=== PATIENT | female | born 2000 | race Caucasian/White ===

== ENCOUNTER 2020-01-31 22:32 | Emergency (ER) | payer MEDICAID ==
[~2020-01-31] VITALS: Ht 167.6 cm; Wt 62.3 kg
[2020-01-31] MEDS ORDERED: PROCHLORPERAZINE 5 MG/ML, 2ML ONE (23:20)
[2020-01-31] MEDS ORDERED: KETOROLAC 30 MG/1 ML ONE (23:20)
[2020-01-31] MEDS ORDERED: ACETAMINOPHEN 500 MG TABLET ONE (23:21)
[2020-01-31 23:26] LABS: MICROSCOPIC NOT IND
[2020-01-31] MEDS ORDERED: DIPHENHYDRAMINE 25 MG CAPSULE PO ONE (23:30)
[2020-01-31] MEDS ORDERED: KETOROLAC 30 MG/1 ML IM ONE (23:30)
[2020-01-31] MEDS ORDERED: ACETAMINOPHEN 500 MG TABLET PO ONE (23:30)
[2020-01-31] MEDS ORDERED: PROCHLORPERAZINE 5 MG/ML, 2ML IM ONE (23:30)
--- NOTE | 2020-01-31 23:30 | NUR ---
PT RESTING IN BED, PT PROVIDED WARM BLANKET AFTER PT AMBULATED TO BATHROOM WITHOUT DIFFICULTY. PT ON MONITOR AND MANUFACTURING PROJECT ENGINEER WILL CONTINUE TO MONITOR PT VITALS
[2020-01-31 23:39] LABS: BASOPHILS # (AUTO) 0.03 x10^3/uL (0-0.3); BASOPHILS % (AUTO) 1 % (0-1); EOSINOPHILS # (AUTO) 0.14 x10^3/uL (0-0.8); EOSINOPHILS % (AUTO) 3 % (1-7); LYMPHOCYTES # (AUTO) 2.29 x10^3/uL (1-6.1); LYMPHOCYTES % (AUTO) 42 % (22-44); MD NO; MEAN CORPUSCULAR HEMOGLOBIN 30.5 pg (27.0-34.8); MEAN CORPUSCULAR VOLUME 92.3 fL (80-100); MEAN PLATELET VOLUME 9.5 fL (7.4-10.4); MONOCYTES # (AUTO) 0.39 x10^3/uL (0-1.4); MONOCYTES % (AUTO) 7 % (2-9); NEUTROPHILS # (AUTO) 2.64 x10^3/uL (1.8-8.0); NEUTROPHILS % (AUTO) 48 % (42-75); PLATELET COUNT 258 x10^3/uL (130-400); RED BLOOD COUNT 4.09 x10^6/uL (3.82-5.3); RED CELL DISTRIBUTION WIDTH 12.7 % (9.6-15.2)
[2020-01-31 23:51] LABS: ALBUMIN 3.7 g/dL (3.4-5.0); ANION GAP 6 mmol/L (5-15); CHLORIDE 105 mmol/L (98-107); CREATININE 0.93 mg/dL (0.55-1.02)
[2020-01-31] MEDS ORDERED: DIPHENHYDRAMINE 25 MG CAPSULE ONE (23:55)
[2020-02-01 00:40] VITALS: BP 124/70
== END 2020-02-01 00:42 | disposition home or self-care (01) ==
LOC: ED 02-01 00:03
DX: B34.9 Viral infection, unspecified (principal); Z20.828 Contact with and (suspected) exposure to other viral communicable diseases; J02.9 Acute pharyngitis, unspecified; R05 Cough; R51 Headache; M79.10 Myalgia, unspecified site; R10.9 Unspecified abdominal pain; Z87.891 Personal history of nicotine dependence
CPT/HCPCS: 36415; 80048; 81003; 82040; 84703; 85025; 87635; 96372; 99284; J0780; J1885; Q0163